=== PATIENT | female | born 1950 | race Caucasian/White ===

== ENCOUNTER 2022-09-11 07:57 | Outpatient (OUT) | payer MEDICARE, SELFPAY ==
--- NOTE | 2022-09-11 08:00 | US_ITS ---
The [address] [address] Patient Name: BRENDON OJYA MRN: [id number] date: 1950 Sex: F Assigned Patient Location: US Current Patient Location: US Accession/Order Number: [id number] Exam Date: 09/11/2022 08:00 Report Date: 09/11/2022 09:46 At the request of: JACQUE HOPE Procedure: US pelvis w/ transvaginal EXAMINATION: US pelvis w/ transvaginal HISTORY: Post Menopausal Bleeding N95.0 COMPARISON: No relevant comparison available. TECHNIQUE: Transabdominal and/or transvaginal sonographic examination was performed as indicated by examination type. FINDINGS: UTERUS: Normal size and appearance. Uterus size: 7.1 x 5.0 x 3.5 cm ENDOMETRIUM: Normal homogeneous appearance. Endometrial thickness: 4 mm RIGHT OVARY: Contains several benign-appearing cysts, largest is 2.8 cm. Duplex Doppler demonstrates normal waveform and flow; resistive index 0.5. Ovary size: 4.0 x 3.8 x 2.9 cm LEFT OVARY: Not seen. No suspicious adnexal findings. CUL-DE-SAC: Unremarkable. No significant free fluid. BLADDER: Unremarkable. OTHER: None. US/US pelvis w/ transvaginal IMPRESSION: 1. Unremarkable uterus and endometrium. 2. Several cysts within right ovary, while the appearance is not overtly suspicious, these are unexpected for patient's age. Electronically authenticated by: KEVON WATKINS Date: 09/11/2022 09:46
== END 2022-09-11 07:58 | disposition home or self-care (01) ==
LOC: US 07:57
PROVIDERS: Visit Provider Obstetrics & Gynecology
DX: N95.0 Postmenopausal bleeding (principal); N83.201 Unspecified ovarian cyst, right side
CPT/HCPCS: 76830; 76856

== ENCOUNTER 2022-10-13 13:43 | Outpatient (OUT) | payer MEDICARE, SELFPAY ==
--- NOTE | 2022-10-13 12:41 | ECG_ITS ---
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
== END 2022-10-13 13:44 | disposition home or self-care (01) ==
LOC: PST 13:44
PROVIDERS: Visit Provider Obstetrics & Gynecology
DX: Z01.810 Encounter for preprocedural cardiovascular examination (principal); N95.0 Postmenopausal bleeding; R10.2 Pelvic and perineal pain
CPT/HCPCS: 93005

== ENCOUNTER 2022-10-23 08:59 | Day surgery (SDC) | payer MEDICARE, SELFPAY ==
[2022-10-13 13:48] VITALS: BP 150/76; PULSE 105; RESP 16; TEMP 35.9; O2SAT 99; BMI 32.2
[2022-10-23] VITALS (9 sets, daily range): BP systolic 136–169; BP diastolic 75–102; PULSE 98–118; RESP 12–18; TEMP 36.5–37.1; O2SAT 92–99; BMI 32.2
[2022-10-23 09:23] LABS: Glucometer 95 mg/dL (74-106)
[2022-10-23 09:24] LABS: Basophils Percent Auto 0.3 % (0.2-2.0); Eosinophils Absolute Auto 0.2 10^3/uL (0.0-0.7); Eosinophils Percent Auto 2.3 % (0.9-7.0); Hemoglobin 16.9 g/dL (12.0-16.0); Immature Granulocytes Abs Auto 0.02 10^3/uL (0.00-0.03); Immature Granulocytes Pct Auto 0.2 % (0.0-0.5); Lymphocytes Absolute Auto 2.5 10^3/uL (1.2-3.8); Mean Corpuscular HGB Conc 33.1 g/dL (29.9-35.2); Mean Corpuscular Volume 90.6 fL (81.0-99.0); Mean Platelet Volume 10.4 fL (9.5-13.5); Monocytes Absolute Auto 0.8 10^3/uL (0.3-0.8); Monocytes Percent Auto 7.8 % (1.7-12.0); Neutrophils Absolute Auto 6.1 10^3/uL (1.4-6.5); Neutrophils Percent Auto 63.4 % (43.0-75.0); Platelet Count 188 10^3/uL (150-450); Red Blood Count 5.63 10^6/uL (4.20-5.40); Red Cell Distribution Width 13.2 % (11.0-15.0); White Blood Count 9.6 10^3/uL (4.0-11.0)
[2022-10-23] MEDS: LACTATED RINGER'S SOLUTION 1,000 ML 50 ML IV (09:29)
[2022-10-23] MEDS: LACTATED RINGER'S SOLUTION 1,000 ML 1000 ML IV (12:45)
--- NOTE | 2022-11-06 09:56 | P.ON_ITS ---
Brief Operative Note Date of procedure: 10/23/22 Pre-op diagnosis: thickened endometrial lining, pmb Post-op diagnosis: same as pre-op Procedure: NAME OF PROCEDURE: [ D&c hysteroscopy with myosure] finding: atrophic appearing endometrium, no gross evidence of polyps fibroids or malignancy PROCEDURE: The patient was taken back to the Operating Room where she was prepped and draped in normal sterile fashion after being placed under general anesthesia without difficulty. She was also placed in the dorsal lithotomy position. A weighted speculum was placed in the patient?s vagina. The anterior lip of the cervix was identified and grasped with a single tooth tenaculum. The patient?s uterus was then sounded roughly to [? 8] cm. The patient was then gently dilated using Hegar dilators. The hysteroscope was passed through the patient?s cervix into the uterus. Both ostia were identified. fluffy appearing endometrium. No gross evidence of malignancy, no gross evidence of polyps or fibroids. The M yoSure was then placed through the scope into the uterus, endometrial sampling in all quadrants was then performed. the myosure apparatus was removed along with the hysteroscope from the patient's uterus. At that point, gentle curettage was performed until a gritty texture was noted. The endometrial curettings were sent out to pathology. The single tooth tenaculum was then removed from the patient's anterior lip of the cervix where excellent hemostasis was noted. All instruments were removed from the patient?s vagina. The patient tolerated the procedure well. Sponge, lap and needle counts were correct times two. The patient was taken to the Recovery Room in stable condition.Room in stable condition. Anesthesia: GETA Surgeon: Celestino Chew Estimated blood loss (mL): 5 Pathology: other (endometrial currettings) Condition: stable Disposition: PACU
== END 2022-10-23 14:15 | disposition home or self-care (01) ==
PROVIDERS: Visit Provider Obstetrics & Gynecology
PROC: (CPT 58558; principal; 2022-10-23 10:20)
DX: N95.0 Postmenopausal bleeding (principal); R10.2 Pelvic and perineal pain; Z87.442 Personal history of urinary calculi; N85.8 Other specified noninflammatory disorders of uterus
CPT/HCPCS: 58558; 36415; 82948; 85025; 88305; J2704